=== PATIENT | male | born 1950 | race Caucasian/White ===

== ENCOUNTER 2019-06-04 11:45 | Inpatient (IN) | payer MEDICARE, OTHER, SELFPAY ==
[2019-06-04] VITALS (39 sets, daily range): BP systolic 116–178; BP diastolic 68–114; PULSE 71–100; RESP 10–25; TEMP 35.8–36.6; O2SAT 88–99; BMI 460.2
--- NOTE | 2019-06-04 11:51 | XACV_ITS ---
Ht: 180 cm Wt: 150 kg BSA: 2.81 m2 Gender: Male : 1950 Any Known Allergies: Hydrocodone Exam Priority: Routine Procedure(s): Procedure Description: Diagnostic procedure Procedure Description: PCI procedure Procedure Description: Left Heart Catheterization Procedure Description: Left ventriculography Procedure Description: Drug Eluting Coronary Stent Procedure Description: PTCA Procedure Description: Coronary Angiography Diagnostic Cath Status: Emergency Diagnostic Findings Patient arrived as a STEMI alert. He had been having typical chest discomfort with shortness of breath and diaphoresis for about 2 hours. Appropriate medications given in the emergency room. The patient was transferred directly to the cardiac catheterization laboratory. Procedure done from the right radial artery. A right 4 Enrico guide would not seat in the right coronary artery. A Jorge posterior right guide was used. The right coronary artery was occluded just past the origin. Left main coronary artery is normal. Circumflex is a relatively large vessel and gives off for obtuse marginal branches. There are no lesions in the circumflex. The LAD is likewise a moderate size vessel without significant disease. There are 2 diagonal branches. PCI Status: Emergency PCI LVEF Assessed: Yes PCI Indication: STEMI - Immediate PCI for STEMI Interventional Findings The lesion was crossed relatively easily and underwent balloon angioplasty followed by stenting without incident. Remainder of the right coronary arteries mildly diffusely diseased. There is moderate diffuse disease at the acute margin. A good angiographic result was obtained. Decision for PCI with Surgical Consult: No PCI for Multi-vessel Disease: No Conclusions STEMI with occlusion of the right coronary artery. Successful opening with angioplasty and drug-eluting stent. Normal LV function No disease in the left main, circumflex or LAD. Interventional RX Recommendation: PCI w/o planned CABG Diagnostic RX Recommendation: PCI w/o planned CABG Anticoagulation: Heparin Ventriculography Ejection Fraction: 55.0 % Pressures Phase:Rest AO : 88 mmHg / 42 mmHg ( 60 mmHg ) @ 6:11:00 AM 97 mmHg / 70 mmHg ( 83 mmHg ) @ 6:12:00 AM 109 mmHg / 83 mmHg ( 94 mmHg ) @ 6:14:00 AM 89 mmHg / 8 mmHg ( 33 mmHg ) @ 6:34:00 AM LV : 140 mmHg / 0 mmHg / @ 6:34:00 AM 113 mmHg / -34 mmHg / @ 6:34:00 AM Clinical Evaluation EBL: 5mL-10mL Procedural Details AP pads applied. Cardiovascular Instability: No. Pt recieved in ER 4000 units heparin and 600 mg plavix prior to arrival to builder's labourer. Results checked. Procedure Consent Obtained. Pre-Procedure Time Out. Identified patient by full name and date of as verbalized by the patient/guarantor. Does the consent match the physician's order: N/A Emergent. Accurate & Complete Informed Consent: N/A Emergent. Inpatient/Outpatient History & Physical on Chart: N/A Emergent. If H&P is completed, is and addenduem needed: N/A Emergent; If yes, is the addendum complete: N/A Emergent. Visualize and Verify Site with Patient/Guarantor: N/A. Relevant Radiology Images available: N/A. Pre-op teaching completed and patient verbalized understanding. The risks, benefits, and alternatives of sedation and/or procedure were discussed by physician. The patient agrees to continue. Procedure started. Correct patient, site and procedure confirmed by cath team. PERRLA. Strong, equal hand site monitor bilaterally. Lungs clear x 5 lobes. IV Site on Arrival: 18 gauge in the right anticubital. IV Site on Arrival: 20 gauge in the left hand. Pre Procedural Pulses: bilateral radial was 3+. Oxygen started at 2liters/min via nasal canula. bilateral groins was prepped with chloroprep then draped in the usual sterile fashion. right radial was prepped with chloroprep then draped in the usual sterile fashion. Physician arrived. Equipment: 6F - Radial. Baseline sample Acquired. HR: 86 BPM. IV Fluids: 0.9% NaCl at KVO. 500 mL infused prior to builder's labourer. [place] Clinical Fraility Score: 4: Vulnerable. Microwave Remote Sensing Scientist Indications: ACS <= 24 hours. Chest Pain Symptom Assessment: Typical Angina Symptoms. Physician scrubbed in. Immediate Pre-Procedure Time Out. Correct Patient: Yes; Correct Procedure: Yes; Correct Site: Yes; Correct Patient Position: Yes; Correct Supplies: Yes; Dried Flammable Prep: N/A; Blood Products Available: N/A;. Cardiac Cath Pack. ACIST Manifold Kit Model BT 2000. Heparinized Saline (2 units/mL), 1000 mL bag. Lidocaine 1% infiltrated to the right radial. Arterial access obtained. Inventory is CRD 6FR JR 4 GUIDE 100cm. 6 belizean JR 4 guide catheter was inserted over the wire. Guide catheter out. 6 belizean 3DRC guide catheter was inserted over the wire. Kendall guidewire was advanced through the guide catheter to lesion in the prox RCA. Inflation number : 1 A AB TREK 3.00X12 RX BALLOON was prepped and advanced across the Prox RCA , then inflated to 10 MICHELLE for 0:31 seconds. Patient's family updated. Balloon out. Inflation Number : 2 A ABIOLA Harden TRACY 3.0X22 CRISSY -Lot Number# [id number] (exp date 01/12/2021) was prepped and advanced across the Prox RCA. The stent was deployed at 12 MICHELLE for 0:47 seconds. Stent balloon and wire out. Guide catheter out. A 6 belizean TIG catheter in over wire. Multiple views taken of left coronary artery. Catheter removed over the exchange wire. A CRD 6F 145 degree Pigtail 110cm Diagnostic Catheter was advanced over the wire and used for Ventriculography. EDP Sample taken: LV 140/0,19; HR: 92 BPM; SpO2: 90%. LV gram performed in BARRY @ 10 mL/second for a total of 30 mL. EDP Sample taken: LV 113/-35,-10; HR: 90 BPM; SpO2: 92%. Pullback taken: LV Off; AO Off; Mean: , Peak to Peak: , SEP: ; HR: 80 BPM; SpO2: 91%. Catheter removed over the exchange wire. Physician scrubbed out. A TR Band was successful obtaining hemostatsis at the Right Radial artery insertion site. TR band placed. Hemostasis obtained. Post Procedure: Pulses reassessed and unchanged. PERRLA. Strong, equal hand site monitor bilaterally. No VTE prophylaxis required. Medication's Wasted: Lidocaine 1% = 18 mL. Medication's Wasted: Nitro = 49.8 mg. Medication's Wasted: Other = versed 3 mg. Total IV fluids: 100 mL. Complications: none. Estimated blood loss: 5mL-10mL. Post-op diagnosis: STEMI. PCI Indication: STEMI. Procedure completed. Patient transferred by wheelchair to CPRU. Vital chart was stopped. Site: Right Radial artery Sheath Size: 6 Fr Hemostasis Method: TR Band Hemostasis Success: Successful Procedure Medications Start: 12:00 PM Stop: 12:00 PM Medication: Versed Amount: 1 mg Route: I.V. Start: 12:01 PM Stop: 12:01 PM Medication: Fentanyl Amount: 50 mcg Route: I.V. Start: 12:06 PM Stop: 12:06 PM Medication: Versed Amount: 1 mg Route: I.V. Start: 12:07 PM Stop: 12:07 PM Medication: Verapamil Amount: 5 mg Route: I.A. Start: 12:07 PM Stop: 12:07 PM Medication: Nitrogylcerin Amount: 200 mcg Route: I.A. Start: 12:07 PM Stop: 12:07 PM Medication: Fentanyl Amount: 50 mcg Route: I.V. Start: 12:19 PM Stop: 12:19 PM Medication: Versed Amount: 1 mg Route: I.V. Start: 12:25 PM Stop: 12:25 PM Medication: Fentanyl Amount: 50 mcg Route: I.V. Start: 12:31 PM Stop: 12:31 PM Medication: Versed Amount: 1 mg Route: I.V. Start: 12:31 PM Stop: 12:31 PM Medication: Fentanyl Amount: 50 mcg Route: I.V. I, the attending physician, have reviewed and verified all procedure medications. Yes, all medications given per verbal order History/Risk Factors Hypertension: Yes Dyslipidemia: No Peripheral Arterial Disease (PAD): No Myocardial Infarction (IN): No Obesity: Yes Renal Disease: No Prior Interventions PCI: No CABG: No Valve Surgery: No Report Signatures Finalized by:Dr. Dimitri Chapa MD on 06/04/2019 4:21:08 PM
[2019-06-04] MEDS: clopidogrel 300 mg Tablet 600 MG PO (11:55)
[2019-06-04] MEDS: heparin 5,000 unit/mL INJ 1 mL 4000 UNIT IV (11:56)
--- NOTE | 2019-06-04 11:56 | ED_ITS ---
Entered by Logan Merida, acting as scribe for Tristan Rollins DO HPI - Chest Pain General: Chief Complaint: Chest Pain Stated Complaint: STEMI Time Seen by Provider: 06/04/19 11:56 History of Present Illness: HPI narrative: 68 yo male presents with stemi. Pt is going to cathlab from the ER. Patient brought in by EMS for chest pain. I was with another patient and Dr. Small my other partner in the emergency room had a stroke alert. When I came to see the patient Dr. Chapa had already been in the room and they were willing the patient to the Internal Control Consultant. He had been there for a total of 7 minutes at that point. EKG shows acute ST elevation with elevation in 2 3 and aVF. T wave inversion in 1 and aVL. MD complaint: chest pain Review of Systems Card: Reports: chest pain, shortness of breath on exertion and shortness of breath when lying down Physical Exam Const: COMMON NORMALS: average body habitus GENERAL APPEARANCE: cooperative, comfortable and well developed NUTRITIONAL APPEARANCE: obese ORIENTATION/CONSCIOUSNESS: Yes awake HENMT: COMMON NORMALS: normocephalic and head/scalp atraumatic HEAD & SCALP: normocephalic and atraumatic MOUTH: oral and palatal mucosa normal, lip normal and tongue normal THROAT: posterior oropharynx normal and tonsils normal Course ED course: Patient is a STEMI. Dr. Chapa had seen the patient before I was in there had already made arrangements to go to Internal Control Consultant. Patient was room for about 7 to 8 minutes before I came to the room. Did not do any further exam or hinder progress to the Internal Control Consultant did review the EKG. Vital Signs: Vital signs: Vital Signs Pulse Rate 86 06/04/19 11:54 Respiratory Rate 22 H 06/04/19 11:54 Blood Pressure 178/89 06/04/19 11:54 Pulse Oximetry 92 06/04/19 11:54 Discharge Plan Discharge Patient Disposition: Admitted As Inpatient Clinical Impression: ST elevation myocardial infarction (STEMI) Condition: Critical Coding Level of Care Code ED Gallery Or Museum Technician for Chg Fwd Exam Problem Focused The documentation recorded by the scribe, Logan Merida, accurately reflects the service I personally performed and the decisions made by Ayo koo Curtis L, DO Jun 04, 2019 12:02
--- NOTE | 2019-06-04 13:00 | SUR.PHASEI ---
Patient to CPRU via wheelchair for holding pending bed availability. Status post LHC with intervention from the right radial artery. TR band in place to the site- no hematoma noted at this time. Verbal post cath instuctions given to the patient/ family. No new concerns at this time.
--- NOTE | 2019-06-04 13:00 | SUR.PHASEI ---
POST OP FLUIDS NS AT 75 ML/HR WHILE HOLDING. IV PATIENT- NO ISSUES.
--- NOTE | 2019-06-04 13:07 | PM.HP ---
Providers/Chief Complaint Admitting Physician: Dimitri Chapa Primary Care Provider: Lilly Saab Chief Complaint: STEMI History of Present Illness Terence Aguirre is a 68 year old male without a prior history of heart disease who presented to the hospital emergency room by ambulance under a STEMI alert. 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 He had the sudden onset of chest discomfort radiating down both arms with arm discomfort, diaphoresis and shortness of breath. This was typical chest discomfort for angina or injury. His was actually here at the hospital visiting someone else. He called her and then called the ambulance. The prehospital personnel gave him 2 nitroglycerin and several aspirin. His EKG showed ST segment elevation in leads III and aVF which was confirmed on the EKG here. He was prepared immediately for a trip to the cardiac catheterization laboratory. Before that he was given 4000 units of heparin and 600 mg of Plavix. Initially his pain was 10 out of 10. Upon his arrival it was 7 out of 10. He is a reluctant historian because he is in fairly severe pain. His told me later that he had not been feeling well for the last 3 or 4 weeks but could not put his finger on it. She said that he was not having chest pain. Review of Systems General: Reports: 10 or more systems reviewed and unremarkable except in HPI and below Medications/Allergies Allergies Allergy/AdvReac Type Severity Reaction Status Date / Time codeine Allergy ADR-Nausea Verified 06/04/19 12:02 hydrocodone Allergy ADR-Nausea Verified 06/04/19 12:02 PFSH Acute PFSH: Statuses (acute, chronic, etc) shown below reflect problem list status as previously entered and may not be historically accurate Medical History Dyslipidemia (Acute) Elevated PSA (Acute) Essential hypertension (Acute) Gout (Acute) Obesity (Acute) Surgical History H/O removal of cyst (Acute) Hx of laparoscopic gastric banding (Acute) Social History Smoking and tobacco status: former smoker Quit status (tobacco): has quit using tobacco Second hand smoke exposure: No Alcohol intake: current Other details last alcohol use: Patient has an occasional alcoholic beverage socially Substance/Drug Use: never Adopted: No Caregiver/support person: Yes Lives independently: Yes Household members: spouse Housing: House Marital status: Highest education level completed: High School Graduate service: Yes Current occupational status: retired Current occupational exposures/hazards: No Pets and animals: Yes History of recent travel: No Vitals/I&O/Wt Last Vital Signs Pulse 86 06/04/19 11:54 Resp 22 H 06/04/19 11:54 BP 178/89 06/04/19 11:54 Pulse Ox 92 06/04/19 11:54 Weight last 48 hrs Weight 3300 lb Physical Exam Narrative: EXAM NARRATIVE: GENERAL: In general he is uncomfortable, in pain and diaphoretic squirming around the gurney. HEENT: Exam within normal limits. NECK: Supple without jugular vein distention. The carotid upstroke is normal without bruits. BACK: Exam normal. LUNGS: Clear. HEART: Regular rate and rhythm. ABDOMEN: Benign without organomegaly or tenderness. EXTREMITIES: No edema. NEUROLOGIC: Exam normal. SKIN: Unremarkable. Data Attestation for Other Data: I personally reviewed and interpreted the following: (EKG reveals sinus rhythm with ST elevation in leads III and aVF.) A&P Assessment and plan (1) Dyslipidemia: Status: Acute Code(s): E78.5 - Hyperlipidemia, unspecified (2) Essential hypertension: Status: Acute Code(s): I10 - Essential (primary) hypertension (3) Obesity: Status: Acute Qualifiers: Obesity type: due to excess calories Obesity classification: adult class 3 (BMI >= 40) Serious obesity comorbidity presence: unspecified whether serious comorbidity present Code(s): E66.9 - Obesity, unspecified (4) ST elevation myocardial infarction (STEMI): Status: Acute Qualifiers: Involved coronary artery: right coronary artery Qualified Code(s): I21.11 - ST elevation (STEMI) myocardial infarction involving right coronary artery Code(s): I21.3 - ST elevation (STEMI) myocardial infarction of unspecified site Additional A&P Information Patient will go straight to the cardiac catheterization laboratory. I expect the right coronary artery lesion. The EKG reveals ST elevation in the inferior leads. He will be in the hospital 2 days. Attestations Medical Necessity Statement*: I expect the patient's hospital stay to cross 2 midnights for the management of an acute inferior wall PA. Time Spent in Patient Care: Greater than 35 minutes (>than 50% of time spent in counselling and/or direct pt care on unit). Critical Care Time: Critical Care Time (min): 15 Coding Level of Care Code Acute Manager Provider Relations for Chg Fwd History Detailed Exam Detailed Medical Decision Making Moderate Complexity Diagnoses Dyslipidemia E78.5 Essential hypertension I10 Obesity E66.9 Obesity type: due to excess calories Obesity classification: adult class 3 (BMI >= 40) Serious obesity comorbidity presence: unspecified whether serious comorbidity present ST elevation myocardial infarction (STEMI) I21.11 Involved coronary artery: right coronary artery Time Spent (min) 45
--- NOTE | 2019-06-04 13:40 | ECG_ITS ---
Measurements Intervals [place] Rate: 76 P: [place]: 0 QRS: 15 QRSD: 105 T: 101 QT: 374 QTc: 423 ATRIAL FIBRILLATION NONSPECIFIC T-WAVE ABNORMALITY Compared to ECG 12/28/2017 09:05:07 T-wave abnormality now present Sinus rhythm no longer present Electronically Signed On 06-04-2019 20:12:40 SAT TUTOR by Estephania Fernandez M.D. [id number]
--- NOTE | 2019-06-04 13:41 | PC.NURSE ---
Patient clutching his chest with chest pain 12/28. Dr. Chapa notified. see note.
--- NOTE | 2019-06-04 13:41 | ECG_ITS ---
Measurements Intervals [place] Rate: 91 P: 42 HI: 142 QRS: 23 QRSD: 92 T: 116 QT: 349 QTc: [address] ELEVATION, CONSIDER INFERIOR INJURY [MARKED ST ELEVATION W/O NORMALLY INFL INFLECTED T WAVE IN II/aVF] ACUTE IN WARNING: DATA QUALITY MAY AFFECT INTERPRETATION Compared to ECG 12/28/2017 09:05:07 ST (T wave) deviation now present Myocardial infarct finding now present Electronically Signed On 06-04-2019 20:12:26 COMPUTER BUILDER by Estephania Fernandez M.D. [id number]
--- NOTE | 2019-06-04 13:41 | PC.NURSE ---
Patient with complaints of Chest Pain 12/28. States as a squeezing of his chest and he is clutching his chest. BP 123/86 HR 72 (AFIB) O2 sat of 97% on [address] Chapa made aware via telephone with new orders received for a stat EKG. Respiratory was called for EKG.
--- NOTE | 2019-06-04 13:44 | PC.NURSE ---
Respiratory at bedside for EKG.
--- NOTE | 2019-06-04 13:50 | PC.NURSE ---
DR. Chapa called with EKG results. Showing Afib with a rate of 76. Sixto Welch RN, AIRCRAFT SHIPPING CHECKER is hand delivering the Previous and stat EKGs to Dr. Chapa in [facility]. Will await orders.
--- NOTE | 2019-06-04 13:53 | PC.NURSE ---
Orders received for Fentanyl 50 mcg IVP x 1
[2019-06-04] MEDS: fentaNYL 50 mcg/mL INJ 2mL IVP (14:05)
--- NOTE | 2019-06-04 15:00 | PC.NURSE ---
Letting the air out of the TR band per protocol.
--- NOTE | 2019-06-04 15:02 | PC.NURSE ---
Patient stating that he just cannot get comfortable and feels like he need to belch or pass gas . He was assisted out of the bed to the recliner without difficultly. His states the the pain is now down to a 4 and it feels much better sitting up. He requested something to drink with carbination in it. This nurse will get him a sprite.
--- NOTE | 2019-06-04 15:20 | PC.NURSE ---
When going in the patients room to check on the TR band this nurse found it to be slightly bleeding. The 3 ml of air that was taken out at 1500 was placed back in and the bleeding stopped. No hematoma formation. Radial pulse palpable. Will start letting the air out around [address] Chapa made aware.
--- NOTE | 2019-06-04 15:54 | PC.NURSE ---
Respiratory here for EKG that was previously ordered. Patients remains up in the chair. He states that he is feeling better. He has been belching for the last 30 minutes and states that has been a relief. He is no long clutching his chest. His spouse states that he did a lot of heavy lifting before his chest pain started earlier and that his arms are very sore and weak.
--- NOTE | 2019-06-04 16:03 | PC.NURSE ---
Dr. Chapa at bedside. No new orders.
--- NOTE | 2019-06-04 16:11 | PM.MISC ---
Miscellaneous Note Note: Approximately 1 hour after the procedure was completed, I received a call from the nurse stating the patient was having severe chest pain again with mild diaphoresis. It was difficult to sort out whether or not this was the same type of pain which brought him to the hospital. It seemed slightly different. We repeated the EKG and his ST segments had gone back down to normal as opposed to what we saw when he came to the hospital. I gave him 50 mcg of fentanyl. We also gave him some 7-Up and Coca-Cola as he thought perhaps it was gas. He had several very large belches which made him feel better. His color returned, the chest pain became much less and he was less uncomfortable. The diaphoresis also resolved. We have watched him over the last 2 hours to be sure that things are moving in the right direction. He looks much better than he did upon his arrival to the emergency room. Soon we will transfer him to the first floor for the remainder of his hospital stay.
[2019-06-04] MEDS: sodium chloride 0.9% 1,000 ML 100 ML IV (18:35)
[2019-06-04] MEDS: ALPRAZolam 0.25 mg Tablet PO (18:35)
[2019-06-04] MEDS: metoprolol tartrate 50 mg Tablet PO (18:35)
[2019-06-04 18:59] LABS: Troponin(5th) Baseline 268 ng/mL (0-15)
--- NOTE | 2019-06-04 19:41 | ECG_ITS ---
Measurements Intervals [place] Rate: 87 P: [place]: 0 QRS: 15 QRSD: 101 T: 0 QT: 351 QTc: [address] & T-WAVE ABNORMALITY ABNORMAL RHYTHM ECG Compared to ECG 12/28/2017 09:05:07 T-wave abnormality now present Sinus rhythm no longer present Electronically Signed On 06-04-2019 20:13:45 CONDUIT REAMER OPERATOR by Estephania Fernandez M.D. [id number]
[2019-06-04] MEDS: atorvastatin 40 mg Tablet 80 MG PO (19:50)
[2019-06-04] MEDS: alum-mag-hydroxide-sime 30 mL UDC PO (19:51)
[2019-06-04] MEDS: temazepam 15 mg Capsule PO (19:52)
--- NOTE | 2019-06-04 21:30 | PC.NURSE ---
TR band removed at 2029. Right wrist post-cath site WNL. No bleeding or hematoma noted. Dressing placed to right wrist. Patient educated on post-cath care and verbalized understanding. VSS. Will continue to monitor.
[2019-06-05] VITALS (8 sets, daily range): BP systolic 123–150; BP diastolic 85–95; PULSE 70–83; RESP 12–29; TEMP 36.6–37; O2SAT 92–95
[2019-06-05 00:16] LABS: Troponin 5 6HR 407.6 ng/L (0-15); Troponin 5 6HR Delta 139.6 ng/L (0-12)
[2019-06-05] MEDS: sodium chloride 0.9% 1,000 ML 100 ML IV (02:41)
--- NOTE | 2019-06-05 02:52 | PC.NURSE ---
IV removed from right AC per patient request stating that it was bothering him. IV is still present in left hand.
[2019-06-05 05:53] LABS: Basophils % 0.1 %; Eosinophils % 0.3 %; Hematocrit 43.2 % (42.0-52.0); Lymphocytes # 2.3 10^3/uL (0.8-4.8); Lymphocytes % 16.8 %; Mean Corpuscular HGB Conc 32.4 g/dL (30.0-36.0); Mean Corpuscular Hemoglobin 30.8 pg (28.0-34.0); Mean Corpuscular Volume 95.2 fL (80-94); Mean Platelet Volume 10.1 fL (7.4-10.4); Monocytes # 1.4 10^3/uL (0.2-0.9); Monocytes % 10.4 %; Neutrophils # 9.8 10^3/uL (1.8-7.7); Neutrophils % 72.1 %; Nucleated Red Blood Cells % 0 %; Platelet Count 201 10^3/cmm (130-400); Red Blood Count 4.54 10^6/uL (4.1-5.3); Red Cell Distribution Width 13.5 % (12.1-15.1); White Blood Count 13.7 10^3/uL (4.0-10.0)
[2019-06-05 06:19] LABS: Blood Urea Nitrogen 15 mg/dL (8-23); Calcium 9.4 mg/Dl (8.8-10.2); Carbon Dioxide 26 mmol/L (22-29); Chloride 103 mmol/L (98-107); Glomerular Filtration Rate 74.5 mL/min (90-130); Glucose 159 mg/dL (74-106); Sodium 139 mmol/L (136-145)
--- NOTE | 2019-06-05 06:51 | PM.PN ---
Subjective Medications: Reviewed: Yes Medication Review Details: Patient underwent cardiac catheterization yesterday acutely for an inferior wall [place]. The right coronary artery was occluded and underwent stenting. About an hour after the procedure was completed, the patient began to complain of severe chest discomfort. An EKG revealed his ST segment had normalized and was still relatively normal. He did not appear to have occluded the stent clinically. He was given some antacids and some soda. He belched several times and ultimately felt better. His troponins are of course elevated. His left system is unremarkable and he has very minimal LV dysfunction. This morning he feels really well and has no complaints. Vitals/I&O/Wt Last Vital Signs Temp 97.8 F 06/05/19 02:49 Pulse 83 06/05/19 02:44 Resp 23 H 06/05/19 02:44 BP 130/91 06/05/19 02:44 Pulse Ox 93 06/05/19 02:44 06/04/19 06/04/19 06/05/19 14:59 22:59 06:59 Intake Total 1310 / 1310 Balance 1310 / 1310 Weight last 48 hrs Weight 3300 lb Physical Exam Narrative: EXAM NARRATIVE: GENERAL: In general he looks and feels well HEENT: Exam within normal limits. NECK: Supple without jugular vein distention. The carotid upstroke is normal without bruits. BACK: Exam normal. LUNGS: Clear. HEART: Regular rate and rhythm. ABDOMEN: Benign without organomegaly or tenderness. EXTREMITIES: No edema. The right radial artery entry site is flat, dry without bleeding, hematoma or other vessel anomaly. NEUROLOGIC: Exam normal. SKIN: Unremarkable. Data Labs: Other Labs: Subsequent EKGs have revealed the ST segments in leads III and aVF to have normalized. Troponins have been elevated. Other Data: Attestation for Other Data: I personally reviewed and interpreted the following: A&P Assessment and plan (1) Dyslipidemia: Status: Acute Code(s): E78.5 - Hyperlipidemia, unspecified (2) Essential hypertension: Status: Acute Code(s): I10 - Essential (primary) hypertension (3) Obesity: Status: Acute Qualifiers: Obesity type: due to excess calories Obesity classification: adult class 3 (BMI >= 40) Serious obesity comorbidity presence: unspecified whether serious comorbidity present Body mass index: BMI 45.0-49.9 Qualified Code(s): E66.01 - Morbid (severe) obesity due to excess calories; Z68.42 - Body mass index (BMI) 45.0-49.9, adult Code(s): E66.9 - Obesity, unspecified (4) ST elevation myocardial infarction (STEMI): Status: Acute Qualifiers: Involved coronary artery: right coronary artery Qualified Code(s): I21.11 - ST elevation (STEMI) myocardial infarction involving right coronary artery Code(s): I21.3 - ST elevation (STEMI) myocardial infarction of unspecified site Additional A&P Information He is much improved today. We will place his IV on a heparin lock. He will get up and around today. If everything goes well he will be discharged tomorrow morning. Attestations Medical Necessity Statement*: Needs continued hospitalization for management of an acute inferior wall [place] Coding Level of Care Code Acute Arch Support Maker for Roxg Fwd History Detailed Exam Detailed Medical Decision Making Moderate Complexity Diagnoses Dyslipidemia E78.5 Essential hypertension I10 Obesity E66.01; Z68.42 Obesity type: due to excess calories Obesity classification: adult class 3 (BMI >= 40) Serious obesity comorbidity presence: unspecified whether serious comorbidity present Body mass index: BMI 45.0-49.9 ST elevation myocardial infarction (STEMI) I21.11 Involved coronary artery: right coronary artery Time Spent (min) 30
[2019-06-05] MEDS: clopidogrel 75 mg Tablet PO (08:59)
[2019-06-05] MEDS: metoprolol tartrate 50 mg Tablet PO ×2 (08:59→17:57)
[2019-06-05] MEDS: aspirin 81 mg EC Tablet PO (08:59)
--- NOTE | 2019-06-05 12:25 | PM.PN ---
Vitals/I&O/Wt Last Vital Signs Temp 97.9 F 06/05/19 08:02 Pulse 80 06/05/19 08:02 Resp 17 06/05/19 08:02 BP 142/94 06/05/19 08:02 Pulse Ox 93 06/05/19 08:02 06/04/19 06/05/19 06/05/19 22:59 06:59 14:59 Intake Total 1310 / 1310 240 / 240 Balance 1310 / 1310 240 / 240 Weight last 48 hrs Weight 3300 lb Data : 06/05/19 04:49 06/05/19 04:49 Attestations Medical Necessity Statement*: Patient required 48 hours of hospital stay for management of an acute inferior wall [place] Coding Level of Care Code Acute Will Call Clerk for Peri García
--- NOTE | 2019-06-05 12:38 | PC.CHAP ---
Pastoral Care Encounter/Spiritual Assessment Type of Contact [] Declined electronic instrument trades worker visit [] Patient/Family/Request visit [] Outpatient visit [] Follow-up visit [] Physician referral [] Code/Alert [x] Routine visit [] Staff referral [] Actively dying [] Patient sleeping [] Family support [] [] Out of room [] Palliative care [] [] Receiving care in room [] Pre-surgical visit [] Trauma [] Long length of stay [] ICU visit [] Other: Relational/Emotional Strength [x] Patient feels connected with others/family/visitors/staff [] Distress [] Loneliness/isolation [] Abandonment Spirituality of Patient [x] Person of Nikki [] Attends Mandaeism of their Nikki [x] Believes in Prayer [] Reads Bible or Alevism materials [] There are Spiritual issues to be addressed [place]man Interventions [x] Prayer [x] Active listening [x] Non-anxious presence [x] Spiritual/emotional support [] Crisis/trauma care [] Spiritual counseling [] Bereavement support [] Provided bereavement packet [] Provided Bible/devotional materials [] Provided toy/stuffed animal, coloring book to patient or family member [x] Completed spiritual assessment [] Provided Communion [] Anointing/[place] [] Salvation [] Other: Impact on Illness or Injury [] Angry [] Fearful [] Anxious [] Often cries [] Exhaustion [] Unable to work [] Unable to attend nondenominational [] Unable to walk/stand [] Unable to read [] Unable to drive [] Unable to eat/drink [] Unable to sleep [] Unable to be with family [] Other: Summary Linda seen patient , patient was with and daughter and had test and is feeling better. Time spent with patient 10 minutes
[2019-06-05] MEDS: atorvastatin 40 mg Tablet 80 MG PO (20:45)
[2019-06-05] MEDS: temazepam 15 mg Capsule PO (20:48)
[2019-06-06 04:00] VITALS: BP 133/75; PULSE 74; RESP 21; TEMP 36.8; O2SAT 97
--- NOTE | 2019-06-06 07:06 | PM.DCS ---
Discharge Providers Date of Admission: 06/04/19 16:48 Date of Discharge: 06/06/19 Attending Provider at Admission: Dimitri Chapa Attending Provider at Discharge: Dimitri Chapa Primary Care Provider: Lilly Saab Diagnoses at Discharge Discharge Diagnosis (1) Dyslipidemia: Status: Acute (2) Essential hypertension: Status: Acute (3) Obesity: Status: Acute Qualifiers: Obesity type: due to excess calories Obesity classification: adult class 3 (BMI >= 40) Serious obesity comorbidity presence: unspecified whether serious comorbidity present Body mass index: BMI 45.0-49.9 Qualified Code(s): E66.01 - Morbid (severe) obesity due to excess calories; Z68.42 - Body mass index (BMI) 45.0-49.9, adult (4) ST elevation myocardial infarction (STEMI): Status: Acute Qualifiers: Involved coronary artery: right coronary artery Qualified Code(s): I21.11 - ST elevation (STEMI) myocardial infarction involving right coronary artery (5) CAD (coronary artery disease): Status: Acute Reason for Visit Reason for Visit: Reason For Visit: STEMI Hospital Course Hospital Course: Patient entered the emergency room under a STEMI alert. There was ST segment elevation in leads III and aVF. Patient had typical discomfort with pain in the chest and down both arms, diaphoresis and shortness of breath. He was taken immediately to the cardiac catheterization laboratory. Procedure was done from the right radial artery. The right coronary artery was occluded in the proximal portion. It underwent angioplasty and stenting. The remainder of the vessel contained mild to moderate diffuse plaquing. The left system was essentially normal. There was minimal hypokinesis of the inferior base with an ejection fraction of 55%. Patient complained of severe recurrent chest pain about an hour after the procedure. It turned out to be gas. He had some soda and burped several times which made the pain go away. His EKG during that time showed the ST segments to be at baseline. His troponin was elevated as expected. For the remainder of his hospital stay he had no complications. No arrhythmias, heart block or congestive heart failure. The right radial artery entry site was without complication. No bleeding or hematoma or other vascular abnormality. Physical Exam Narrative: EXAM NARRATIVE: GENERAL: Comfortable and feels good at the time of discharge HEENT: Exam within normal limits. NECK: Supple without jugular vein distention. The carotid upstroke is normal without bruits. BACK: Exam normal. LUNGS: Clear. HEART: Regular rate and rhythm. ABDOMEN: Benign without organomegaly or tenderness. EXTREMITIES: No edema. Right radial entry site flat, dry without bleeding or hematoma NEUROLOGIC: Exam normal. SKIN: Unremarkable. Discharge Data Data Completed and Pending: Completed Studies During Hospitalization Category Date Time Status EGYPTOLOGIST request for service Stat Exams 06/04/19 11:51 Completed Vitals: Last Vital Signs Temp 98.2 F 06/06/19 04:00 Pulse 74 06/06/19 04:00 Resp 21 H 06/06/19 04:00 BP 133/75 06/06/19 04:00 Pulse Ox 97 06/06/19 04:00 Discharge Plan Discharge Patient Disposition: Home, Self-Care Condition: Good Prescriptions: New aspirin 81 mg Tablet,Delayed Release (Dr/Ec) 81 mg PO DAILY Qty: 30 RF: 3 clopidogrel 75 mg Tablet 75 mg PO DAILY Qty: 30 RF: 4 metoprolol tartrate 50 mg Tablet 50 mg PO BID Qty: 60 RF: 3 nitroglycerin [Nitrostat] 0.4 mg Tablet, Sublingual 0.4 mg sublingual Q5M PRN (Reason: Chest Pain) Qty: 25 RF: 3 Continued finasteride 5 mg tablet 5 mg PO DAILY RF: 0 allopurinol 100 mg tablet 200 mg PO DAILY RF: 0 ezetimibe-simvastatin 10-40 mg tablet 1 tab PO DAILY RF: 0 colchicine 0.6 mg Capsule 1.2 mg PO DAILY RF: 0 olmesartan 20 mg tablet 20 mg PO DAILY RF: 0 Discharge Orders: Discharge Order (Routine); Ordered 06/06/19 Ordered By: Dimitri Cahpa Referrals: Dimitri Chapa MD [Physician] - 3 months Mary Allen FNP [Nurse Practitioner] - 7-10 days Discharge Diet: Cardiac and Low Cholesterol Discharge Activity: Limit activity as instructed Activity Restrictions/Additional Instructions: No lifting over 5 pounds for 2 days with the right arm. No heavy lifting or vigorous activity for 2 weeks. May walk as much as desired. May drive a vehicle. Discharge Attestations Time Spent in Discharge Care*: greater than 30 min Specific Discharge Activities: Specific discharge activities: educating patient and educating and/or supporting family/caregiver Quality Metrics Clinical Quality Measures During this hospital stay, did patient experience: AMI Clinical Trial Participant: No Contraindication to aspirin (AMI): Aspirin given Contraindication to statin: Statin prescribed Contraindication to PCI: PCI performed Contraindication to Fibrinolytics: Alternative treatment initiated Coding Level of Care Code Acute Associate Automation Engineer for Chg Fwd History Detailed Exam Detailed Medical Decision Making Moderate Complexity Diagnoses Dyslipidemia E78.5 Essential hypertension I10 Obesity E66.01; Z68.42 Obesity type: due to excess calories Obesity classification: adult class 3 (BMI >= 40) Serious obesity comorbidity presence: unspecified whether serious comorbidity present Body mass index: BMI 45.0-49.9 ST elevation myocardial infarction (STEMI) I21.11 Involved coronary artery: right coronary artery CAD (coronary artery disease) I25.10
[2019-06-06 08:00] VITALS: BP 129/75; PULSE 83; RESP 18; TEMP 36.9; O2SAT 93
[2019-06-06 08:25] VITALS: PULSE 81; RESP 21; TEMP 36.8; O2SAT 97
== END 2019-06-06 08:45 | disposition home or self-care (01) | DRG 247 ==
LOC: ER 12:01 → CCL 12:04 → CSU 16:48
PROVIDERS: Admitting Provider Internal Medicine Cardiovascular Disease; Emergency Provider Family Medicine; Family Provider Family Medicine; PCP Family Medicine; Visit Provider Internal Medicine Cardiovascular Disease
PROC: 4A023N7 Measurement of Cardiac Sampling and Pressure, Left Heart, Percutaneous Approach (ICD-10-PCS; principal; 2019-06-04 11:50)
PROC: 4A023N7 Measurement of Cardiac Sampling and Pressure, Left Heart, Percutaneous Approach (ICD-10-PCS; 2019-06-04 11:50)
DX: I21.11 ST elevation (STEMI) myocardial infarction involving right coronary artery (principal); Z68.42 Body mass index [BMI] 45.0-49.9, adult; I25.10 Atherosclerotic heart disease of native coronary artery without angina pectoris; E78.5 Hyperlipidemia, unspecified; I10 Essential (primary) hypertension; E66.01 Morbid (severe) obesity due to excess calories; M10.9 Gout, unspecified; Z88.5 Allergy status to narcotic agent; Z87.891 Personal history of nicotine dependence; Z79.02 Long term (current) use of antithrombotics/antiplatelets; Z79.899 Other long term (current) drug therapy
CPT/HCPCS: 12345; 36415; 80048; 84484; 85025; 93005; 93452; 96374; 99281; C1725; C1769; C1874; C1887; C1894; C9606; J1644; J2001; J2250; J3010; J3490; J7030; Q9967

== ENCOUNTER → 2019-06-11 16:16 | Outpatient (BNVA) | payer MEDICARE, OTHER, SELFPAY | PROVIDERS: Family Provider Family Medicine; PCP Family Medicine; Visit Provider Nurse Practitioner Family | DX: I25.10 Atherosclerotic heart disease of native coronary artery without angina pectoris (principal) | CPT/HCPCS: 80048 ==

== ENCOUNTER 2019-06-20 12:19 | Outpatient (CLI) | payer MEDICARE, OTHER, SELFPAY ==
[2019-06-20 12:53] LABS: Anion Gap 17.1 (5-19); Blood Urea Nitrogen 15 mg/dL (8-23); Calcium 9.8 mg/dL (8.5-10.5); Carbon Dioxide 24 mmol/L (22-29); Chloride 104 mmol/L (98-107); Glomerular Filtration Rate 50.4 mL/min (90-130); Glucose 118 mg/dL (74-106); Osmolality Calculated 287 mOsm/kg (285-295); Potassium 5.1 mmol/L (3.5-5.1); Sodium 140 mmol/L (136-145)
== END 2019-06-20 12:20 | disposition home or self-care (01) ==
LOC: LAB 12:24
PROVIDERS: Family Provider Family Medicine; PCP Family Medicine; Visit Provider Nurse Practitioner Family
DX: I25.10 Atherosclerotic heart disease of native coronary artery without angina pectoris (principal)
CPT/HCPCS: 36415; 80048

== ENCOUNTER 2019-07-01 12:16 | Outpatient (RCR) | payer MEDICARE, OTHER, SELFPAY | END 2019-07-19 23:59 | disposition home or self-care (01) | LOC: CR 12:16 | PROVIDERS: Family Provider Family Medicine; PCP Family Medicine; Referring Provider Internal Medicine Cardiovascular Disease; Visit Provider Internal Medicine Cardiovascular Disease | DX: I25.10 Atherosclerotic heart disease of native coronary artery without angina pectoris (principal); I21.3 ST elevation (STEMI) myocardial infarction of unspecified site; Z95.5 Presence of coronary angioplasty implant and graft | CPT/HCPCS: 93798 ==

== ENCOUNTER 2019-10-21 09:07 | Outpatient (CLI) | payer MEDICARE, OTHER, SELFPAY ==
--- NOTE | 2019-10-21 09:15 | USCV_ITS ---
Terence Aguirre Age: 69 Gender: M : 1950 Exam Date: 10/21/2019 09:52 Ordering Phys: Tiffanie Dukes NP Technologist: Louisa Bowen Exam Location: [facility] [place] Indication: SCREENING FOR AAA HISTORY: SCRENING FOR AAA Diameter (cm) AP x Transverse x Length Velocity (cm/s) Waveform Prox Aorta: 3.06 x 2.70 x 73.40 Mid Aorta: 2.10 x 2.42 x 54.80 Distal Aorta: 2.37 x 2.17 x 62.90 Right Iliac Prox: 1.33 x 1.40 x 68.80 Left Iliac Prox: 1.83 x 1.70 x 55.70 Stent Prox Landing x x Aneurysmal Sac Max x x Lt Lat Sac Dim Rt Lat Sac Dim Stent Dist Landing x x Right Iliac Stent x x Left Iliac Stent x x Right Renal Art Left Renal Art FINDINGS: Normal aortic dimensions. Mild diffuse plaques in the aorta. Ectatic proximal common iliac arteries bilaterally Normal Doppler flow velocities CONCLUSIONS 1. No evidence of any aortic aneurysm. 2. Ectatic proximal common iliac arteries bilaterally. Dr Chelsie Mares MD FACC (Electronically Signed) Final Date: 22 October 2019 18:36 S
== END 2019-10-21 09:08 | disposition home or self-care (01) ==
LOC: RAD 09:13
PROVIDERS: PCP Nurse Practitioner Family; Visit Provider Nurse Practitioner Family
DX: Z87.891 Personal history of nicotine dependence (principal)
CPT/HCPCS: 76706

== ENCOUNTER 2020-11-19 12:46 | Outpatient (CLI) | payer MEDICARE, OTHER, SELFPAY ==
--- NOTE | 2020-11-19 12:52 | CT_ITS ---
WS: [id number] LDCT LUNG CANCER SCREENING HISTORY: TOBACCO USE TECHNIQUE: Axial imaging performed from the apices to 1 cm below the costophrenic angles. Coronal and sagittal reformats are submitted with axial MIP series. All CT scans at [facility] use at least one of these dose optimization techniques: automated exposure control; mA and/or kV adjustment per patient size (includes targeted exams where dose is matched to clinical indication); or iterativ e reconstruction. DLP: 57.75 mGy.cm DIvol: 1.58 mGy COMPARISON: None available. Diagnostic quality: Satisfactory Lung Nodules: None. Lungs: Well aerated lungs. Mild dependent changes posteriorly. Heart: Normal size. Other findings: Moderate coronary artery atherosclerosis. Small hiatal hernia. CT/CT lung screening [id number] IMPRESSION: LUNG-RADS: 1-Negative FOLLOW UP: 12 Month: Continue annual screening with LDCT OTHER FINDINGS (S MODIFIER): None.
--- NOTE | 2020-11-19 12:53 | XR_ITS ---
WS: [id number] Cervical spine, AP view, both obliques, lateral views with flexion, extension and neutral position, A P odontoid, 11/19/2020 Clinical Data: CERVICAIGIA Comparison: None. Findings: No compression fractures are seen. The disc heights are normal. There are large spurs of th e anterior inferior aspects of the vertebral bodies C2-C6. There is no prevertebral soft tissue swell ing. The odontoid is unremarkable. The lung apices are normal. The soft tissues of the neck show ishan cifications which may be in both carotid bifurcations. On flexion and extension there is no limitatio n of motion or subluxation. XR/XR cervical spine min 6V [id number] Impression: 1. Large anterior spurs of the cervical vertebral bodies C2-C3 6. 2. Negative for limitation of motion or subluxation on flexion or extension.
== END 2020-11-19 12:47 | disposition home or self-care (01) ==
PROVIDERS: PCP Nurse Practitioner Family; Visit Provider Nurse Practitioner Family
DX: Z77.090 Contact with and (suspected) exposure to asbestos (principal); Z87.891 Personal history of nicotine dependence; M54.2 Cervicalgia; M46.02 Spinal enthesopathy, cervical region
CPT/HCPCS: 71271; 72052

== ENCOUNTER 2021-03-27 11:35 | Emergency (ER) | payer MEDICARE, OTHER, SELFPAY ==
[2021-03-27 11:50] VITALS: BP 165/78; PULSE 57; RESP 18; TEMP 36.6; O2SAT 94; BMI 44.4
--- NOTE | 2021-03-27 12:37 | XRR_ITS ---
PROCEDURE INFORMATION: Exam: XR Chest Exam date and time: 03/27/2021 12:37 PM Age: 70 years old Clinical indication: Other: Dizzy; Additional info: Dizziness TECHNIQUE: Imaging protocol: XR of the chest. Views: 1 view. COMPARISON: CT lung screening [id number] 11/19/2020 12:56 PM FINDINGS: Lungs: Unremarkable. No consolidation. Pleural spaces: Unremarkable. No pleural effusion. No pneumothorax. Heart/Mediastinum: Unremarkable. No cardiomegaly. Bones/joints: Unremarkable. XR/XR chest 1V portable [id number] IMPRESSION: No acute findings. Radiation Dose CTDIVOL = (mGy): DLP = (mGy-cm)
--- NOTE | 2021-03-27 12:37 | CTR_ITS ---
PROCEDURE INFORMATION: Exam: CT Head Without Contrast Exam date and time: 03/27/2021 12:37 PM Age: 70 years old Clinical indication: Patient HX: C/O 3-4 days of dizziness; Additional info: Dizziness/ataxia TECHNIQUE: Imaging protocol: Computed tomography of the head without contrast. Radiation optimization: All CT scans at this facility use at least one of these dose optimization techniques: automated exposure control; mA and/or kV adjustment per patient size (includes targeted exams where dose is matched to clinical indication); or iterative reconstruction. COMPARISON: CR XR cervical spine min 6V [id number] 11/19/2020 1:02 PM RADIATION DOSE METRICS: Total DLP (mGy-cm): 1001.6 FINDINGS: Brain: No intracranial hemorrhage, edema or other acute abnormalities are seen in the brain. There is generalized chronic atrophy with prominence of the ventricles and sulci. There is no mass effect or midline shift. Cerebral ventricles: See Brain finding. Paranasal sinuses: Visualized sinuses are unremarkable. No fluid levels. Mastoid air cells: Visualized mastoid air cells are well aerated. Bones/joints: Unremarkable. No acute fracture. Soft tissues: Unremarkable. CT/CT head wo con* [id number] IMPRESSION: Generalized chronic atrophy. No acute intracranial abnormality. Radiation Dose CTDIVOL = (mGy): DLP = 1001.6 (mGy-cm)
--- NOTE | 2021-03-27 12:39 | ECG_ITS ---
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 Measurements Intervals [place] Rate: 53 P: 56 DE: 143 QRS: 33 QRSD: 97 T: 32 QT: 388 QTc: 366 Interpretive Statements SINUS BRADYCARDIA Compared to ECG 06/04/2019 15:55:17 Atrial fibrillation no longer present T-wave abnormality no longer present Electronically Signed On 03-27-2021 21:54:50 TRAVEL ASSISTANT by Ender Adkins M.D. [id number]
[2021-03-27 13:21] VITALS: BP 152/86; PULSE 52; O2SAT 93
[2021-03-27] MEDS: sodium chloride 0.9% 1,000 ML 999 ML IV (13:23)
[2021-03-27 13:25] LABS: Basophils % 0.5 %; Eosinophils # 0.1 10^3/uL (0.0-0.8); Eosinophils % 1.7 %; Hematocrit 51.1 % (42.0-52.0); Hemoglobin 16.6 g/dL (11.7-16.6); Lymphocytes % 26.2 %; Mean Corpuscular HGB Conc 32.5 g/dL (30.0-36.0); Mean Corpuscular Hemoglobin 30.3 pg (28.0-34.0); Mean Corpuscular Volume 93.4 fl (80-94); Mean Platelet Volume 9.8 fL (7.4-10.4); Monocytes # 0.7 10^3/uL (0.2-0.9); Monocytes % 9.4 %; Neutrophils # 4.73 10^3/uL (1.8-7.7); Neutrophils % 61.9 %; Nucleated Red Blood Cells % 0 %; Platelet Count 208 10^3/cmm (130-400); Red Blood Count 5.47 10^6/uL (4.1-5.3); Red Cell Distribution Width 13.2 % (12.1-15.1); White Blood Count 7.6 10^3/uL (4.0-10.0)
--- NOTE | 2021-03-27 13:37 | W.ED.DIZZY ---
HPI - Dizziness General: Chief Complaint: Dizziness Stated Complaint: off balance Time Seen by Provider: 03/27/21 11:52 Source: patient and family Mode of arrival: ambulatory History of Present Illness: HPI Narrative: 70-year-old male presents to emergency department chief complaint of dizziness with a gait abnormality has been ongoing progressively worse for the last several days. Patient reported a prior history heart attack or stent prior history of stroke. He reports no chest pain dizziness or dizziness or palpitations or shortness of breath. He reports when getting up from a seated to a standing position he gets kind of dizzy in which he also has difficulty with walking. The patient reports couple days ago he did strike his head during a fall. Patient does report having a history of hearing loss which he is being currently worked up for. MD elicited complaint: dizziness, lightheadedness, difficulty walking and disequilibrium Onset (ago): hour(s) Timing: awoke with symptoms and episodic Severity: moderate Description: sense of movement, lightheadedness, off-balance and difficulty walking Context: change in body position History of similar symptoms: No Exacerbating factors: movement/ambulation, change in body position, exertion and standing Relieving factors: nothing Associated symptoms: Denies chest pain, chills, headache(s), malaise, nausea, palpitations or vomiting Review of Systems General: Reports: 10 or more systems reviewed and unremarkable except in HPI and below Const: Denies: fever(s), chills, fatigue or malaise Eyes: Denies: change in vision or blurry vision Card: Denies: chest pain or palpitations Resp: Denies: dyspnea or productive cough GI: Denies: abdominal pain, nausea or vomiting : Denies: flank pain Musc: Denies: extremity pain or extremity swelling Skin/Breast: Denies: rash or pruritus Neuro: Reports: lack of coordination, difficulty walking and frequent falls; Denies: headache(s) Psych: Denies: anxiety or depression Geremias/Lymph: Denies: easy bleeding All/Imm: Denies: urticaria, throat swelling or facial swelling PFSH ED PFSH: Medical History (Updated 03/27/21 @ 16:30 by Mateo Shen) CAD (coronary artery disease) Angioplasty and stent of proximal RCA. LVEF 55%. Dyslipidemia Elevated PSA Essential hypertension Gout Obesity Surgical History H/O removal of cyst Hx of laparoscopic gastric banding Family History Other CAD (coronary artery disease) Cancer Dementia Diabetes Heart disease Hyperlipidemia Hypertension Social History Smoking and tobacco status: former smoker Quit status (tobacco): has quit using tobacco Second hand smoke exposure: No Alcohol intake: current Alcohol intake frequency: holidays/special occasions only Alcohol type: beer Other details last alcohol use: Patient has an occasional alcoholic beverage socially Adopted: No Caregiver/support person: Yes Lives independently: Yes Household members: spouse Housing: House Marital status: Highest education level completed: High School Graduate service: Yes Current occupational status: retired Current occupational exposures/hazards: No Pets and animals: Yes History of recent travel: No Physical Exam Narrative: EXAM NARRATIVE: Patient appears nontoxic appears in no obvious acute distress currently Const: COMMON NORMALS: no acute distress, patient oriented x3 and healthy appearing HENMT: COMMON NORMALS: normocephalic and atraumatic HEAD & SCALP: normocephalic and atraumatic Eye: COMMON NORMALS: Equal, round and reactive pupils present and EOMs intact bilaterally PUPIL: Yes Equal, round and reactive pupils present Neck/C-Spine: COMMON NORMALS: full ROM, supple and no JVD GENERAL: Yes normal visual inspection Lymph: LYMPHATIC: no lymphadenopathy noted Chest: COMMONS NORMALS: normal inspection of the chest and normal palpation of entire chest wall Resp: COMMON NORMALS: normal respiratory effort, No retractions and clear to auscultation bilaterally EFFORT & INSPECTION: Yes able to speak in complete sentences and Yes symmetric chest movement AUSCULTATION: clear to auscultation bilaterally Cardio: COMMON NORMALS: no JVD, regular rate and regular rhythm RATE: regular rate RHYTHM: regular rhythm GI: COMMON NORMALS: Normal to inspection, nondistended, normoactive bowel sounds present, Soft to palpation and non-tender INSPECTION: Yes normal to inspection PALPATION: Yes Soft to palpation : COMMON NORMALS: Yes no CVA tenderness BLADDER/KIDNEY EXAM: Yes no CVA tenderness Back/Pelvis: COMMON NORMALS: no CVA tenderness Extremity: COMMON NORMALS: normal to inspection and full ROM Neuro: COMMON NORMALS: patient oriented x3, CN's II-XII intact bilaterally, moves all extremities and no focal motor deficits Psych: COMMON NORMALS: mental status grossly normal, Normal thought process present, cooperative and normal affect THOUGHT PROCESS: Normal thought process present Skin: COMMON NORMALS: no rashes or lesions noted GENERAL SKIN EXAM: no rashes or lesions noted Course Vital Signs: Vital signs: Vital Signs Temperature 97.8 F 03/27/21 11:50 Pulse Rate 55 L 03/27/21 14:57 Respiratory Rate 18 03/27/21 11:50 Blood Pressure 129/70 03/27/21 14:57 Pulse Oximetry 94 03/27/21 14:57 MDM - Dizziness MDM Narrative: Medical decision making narrative: Due to the patient's symptoms and condition lab work and imaging will be obtained we will continue to follow. Patient's lab work imaging came back reassuring patient did have a second car troponin came back unremarkable CT imaging did not reveal any obvious underlying neuro cranial issue. Patient did report improvement with a steroid and meclizine provided prior to second troponin being obtained. This time the patient be subsequent discharged home with plans for the follow-up with primary care in 3 to 5 days in which she was advised to return the interim if any of his symptoms persist or worse. Lab Data: Labs: Lab Results 03/27/21 03/27/21 03/27/21 13:08 13:15 13:15 WBC 7.6 10^3/uL 10^3/ uL (4.0-10.0) RBC 5.47 10^6/uL H 10 ^6/uL (4.1-5.3) Hgb 16.6 g/dL g/dL (11.7-16.6) Hct 51.1 % % (42.0-52.0) MCV 93.4 fl fl (80-94) MCH 30.3 pg pg (28.0-34.0) MCHC 32.5 g/dL g/dL (30.0-36.0) RDW 13.2 % % (12.1-15.1) Plt Count 208 10^3/cmm 10^3 /cmm (130-400) MPV 9.8 fL fL (7.4-10.4) Neut % (Auto) 61.9 % % Lymph % (Auto) 26.2 % % [place] % (Auto) 9.4 % % Eos % (Auto) 1.7 % % Baso % (Auto) 0.5 % % Neut # (Auto) 4.73 10^3/uL 10^3 /uL (1.8-7.7) Lymph # (Auto) 2.0 10^3/uL 10^3/ uL (0.8-4.8) [place] # (Auto) 0.7 10^3/uL 10^3/ uL (0.2-0.9) Eos # (Auto) 0.1 10^3/uL 10^3/ uL (0.0-0.8) Baso # (Auto) 0.0 10^3/uL 10^3/ uL (0.0-0.1) Nucleated RBC % (a uto) 0 % % Nucleated RBCs # 0.0 /100WBC /100W BC Sodium 139 mmol/L mmol/L (136-145) Potassium 4.7 mmol/L mmol/L (3.5-5.1) Chloride 104 mmol/L mmol/L (98-107) Carbon Dioxide 25 mmol/L mmol/L (22-29) Anion Gap 14.7 (5-19) BUN 14 mg/dL mg/dL (8-23) Creatinine 1.1 mg/dL mg/dL (0.7-1.2) GFR Calculation 66.4 mL/min L mL/ min (90-130) Glucose 100 mg/dL mg/dL (65-115) Calculated Osmolal ity 289 mOsm/kg mOsm/ kg (285-295) Calcium 9.1 mg/dL mg/dL (8.5-10.5) Total Bilirubin 0.3 mg/dL mg/dL (0.15-1.2) AST 22 U/L U/L (0-40) ALT 31 U/L U/L (0-41) Alkaline Phosphata se 78 IU/L IU/L (40-130) Troponin T Baselin e Troponin T 120 Min sharee Delta Troponin T C-Reactive Protein 0.3 mg/L mg/L (0.0-4.9) NT-Pro-B Natriuret Pep 88 pg/mL pg/mL (0-125) Total Protein 7.4 g/dL g/dL (6.6-8.7) Albumin 4.2 g/dL g/dL (3.5-5.2) Globulin 3.2 g/dL g/dL (1.3-4.6) TSH 1.15 uIU/mL uIU/m L (0.27-4.20) Urine Color Yellow (Yellow) Urine Appearance Clear (CLEAR) Urine pH 5 (5-7) Ur Specific Gravit y 1.010 (1.005-1.030) Urine Protein Neg (Negative) Urine Glucose (UA) Norm (Normal) Urine Ketones Negative (Negative) Urine Blood Neg (Negative) Urine Nitrate Negative (Negative) Urine Bilirubin Neg (Negative) Urine Urobilinogen Norm mg/dL mg/dL (Negative) Ur Leukocyte Slime ase Negative (Negative) 03/27/21 03/27/21 13:15 15:05 WBC RBC Hgb Hct MCV MCH MCHC RDW Plt Count MPV Neut % (Auto) Lymph % (Auto) [place] % (Auto) Eos % (Auto) Baso % (Auto) Neut # (Auto) Lymph # (Auto) [place] # (Auto) Eos # (Auto) Baso # (Auto) Nucleated RBC % (a uto) Nucleated RBCs # Sodium Potassium Chloride Carbon Dioxide Anion Gap BUN Creatinine GFR Calculation Glucose Calculated Osmolal ity Calcium Total Bilirubin AST ALT Alkaline Phosphata se Troponin T Baselin e 13 ng/L ng/L (0-15) Troponin T 120 Min sharee 12.18 ng/L ng/L (0-15) Delta Troponin T -0.82 ABS# L ABS# (0-10) C-Reactive Protein NT-Pro-B Natriuret Pep Total Protein Albumin Globulin TSH Urine Color Urine Appearance Urine pH Ur Specific Gravit y Urine Protein Urine Glucose (UA) Urine Ketones Urine Blood Urine Nitrate Urine Bilirubin Urine Urobilinogen Ur Leukocyte Slime ase EKG Data^: EKG 1: Attestation: I personally reviewed and interpreted this EKG as follows: EKG interpretation date: 03/27/21 EKG interpretation time: 13:07 Prior EKG tracings: not available for review Computer generated interpretation: Normal sinus rhythm rate of 53 sinus bradycardia no gross ST segment elevations or depressions appreciated. Discharge Plan Discharge Patient Disposition: Home Clinical Impression: Vertigo Condition: Stable Prescriptions: New prednisone 20 mg tablet 20 mg PO DAILY 7 Days Qty: 7 RF: 0 meclizine 25 mg tablet 25 mg PO TID PRN (Reason: vertigo) Qty: 20 RF: 0 No Action metformin 500 mg tablet extended release 24 hr 1,000 mg PO BID RF: 0 metoprolol tartrate 50 mg tablet 50 mg PO BID RF: 0 allopurinol 100 mg tablet 100 mg PO DAILY RF: 0 clopidogrel 75 mg tablet 75 mg PO DAILY Qty: 90 RF: 3 ezetimibe-simvastatin 10-40 mg tablet 1 tab PO DAILY Qty: 90 RF: 3 colchicine 0.6 mg capsule 0.6 mg PO BID PRN (Reason: for flare) Qty: 90 RF: 3 finasteride 5 mg tablet 5 mg PO DAILY Qty: 90 RF: 3 olmesartan 20 mg tablet 20 mg PO DAILY Qty: 90 RF: 3 aspirin 81 mg Tablet,Delayed Release (Dr/Ec) 81 mg PO DAILY Qty: 30 RF: 3 Nitrostat 0.4 mg Tablet, Sublingual 0.4 mg sublingual Q5M PRN (Reason: Chest Pain) Qty: 25 RF: 3 Discharge Orders: Discharge ED (Routine); Ordered 03/27/21 Ordered By: Mateo Shen Referrals: Tiffanie Dukes NP [Primary Care Provider] - Discharge Diet: Usual diet Discharge Activity: Increase activity as tolerated Patient Instructions: Benign Positional Vertigo, Benign Paroxysmal Positional Vertigo (ED), Near Syncope (ED), Dizziness (ED), Opioid Safety Activity Restrictions/Additional Instructions: Please follow-up with your primary care doctor in 3 to 5 days, take medication as prescribed, and please return in the interim if any of your symptoms persist or worse. Coding Level of Care Code ED Forensic Medical Examiner for Peri García Exam Comprehensive
[2021-03-27 13:38] LABS: Add Urine Microscopic? NO; Charge for UA Resulting for Rev
[2021-03-27 13:42] LABS: Troponin(5th) Baseline 13 ng/L (0-15)
[2021-03-27 13:48] LABS: Alanine Aminotransferase 31 U/L (0-41); Albumin Level 4.2 g/dL (3.5-5.2); Alkaline Phosphatase 78 IU/L (40-130); Anion Gap 14.7 (5-19); Aspartate Amino Transferase 22 U/L (0-40); Blood Urea Nitrogen 14 mg/dL (8-23); C Reactive Protein 0.3 mg/L (0.0-4.9); Calcium 9.1 mg/dL (8.5-10.5); Carbon Dioxide 25 mmol/L (22-29); Chloride 104 mmol/L (98-107); Globulin 3.2 g/dL (1.3-4.6); Glomerular Filtration Rate 66.4 mL/min (90-130); Glucose 100 mg/dL (65-115); NT Pro B Type Natriuretic Pept 88 pg/mL (0-125); Osmolality Calculated 289 mOsm/kg (285-295); Potassium 4.7 mmol/L (3.5-5.1); Sodium 139 mmol/L (136-145); Thyroid Stimulating Hormone 1.15 uIU/mL (0.27-4.20); Total Bilirubin 0.3 mg/dL (0.15-1.2); Total Protein 7.4 g/dL (6.6-8.7)
[2021-03-27] MEDS: meclizine 25 mg tablet 50 MG PO (14:05)
[2021-03-27 14:17] LABS: Bilirubin Urine Neg (Negative); Blood Urine Neg (Negative); Glucose Urine UA Norm (Normal); Ketones Urine Negative (Negative); Leukocyte Esterase Urine Negative (Negative); Nitrate Urine Negative (Negative); Protein Urine Neg (Negative); Urine Appearance Clear (CLEAR); Urine Color Yellow (Yellow); Urobilinogen Urine Norm (Negative); pH Urine 5 (5-7)
--- NOTE | 2021-03-27 14:39 | ECG_ITS ---
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 Measurements Intervals [place] Rate: 54 P: 30 FL: 134 QRS: 22 QRSD: 92 T: 23 QT: 390 QTc: 372 Interpretive Statements SINUS BRADYCARDIA WITH SINUS ARRHYTHMIA LOW QRS VOLTAGE IN PRECORDIAL LEADS [QRS DEFLECTION < 1.0 mV IN CHEST LEADS] Compared to ECG 03/27/2021 12:59:28 Low QRS voltage now present Electronically Signed On 03-27-2021 21:58:43 ENVIRONMENTAL COORDINATOR by Ender Adkins M.D. [email or web address]
[2021-03-27 14:57] VITALS: BP 129/70; PULSE 55; O2SAT 94
[2021-03-27 15:41] LABS: Troponin 5 2HR 12.18 ng/L (0-15)
[2021-03-27 15:42] LABS: Troponin 5 2HR Delta -0.82 ABS# (0-10)
== END 2021-03-27 17:08 | disposition home or self-care (01) ==
PROVIDERS: Emergency Provider Emergency Medicine; PCP Nurse Practitioner Family
DX: R42 Dizziness and giddiness (principal); Z79.84 Long term (current) use of oral hypoglycemic drugs; Z79.02 Long term (current) use of antithrombotics/antiplatelets; Z79.82 Long term (current) use of aspirin; I25.10 Atherosclerotic heart disease of native coronary artery without angina pectoris; E78.5 Hyperlipidemia, unspecified; I10 Essential (primary) hypertension; Z87.891 Personal history of nicotine dependence
CPT/HCPCS: 70450; 71045; 80053; 81003; 83880; 84443; 84484; 85025; 86140; 93005; 96360; 99284; J7030; J8597

== ENCOUNTER 2021-10-26 13:30 | Outpatient (CLI) | payer MEDICARE, OTHER, SELFPAY ==
--- NOTE | 2021-10-26 14:21 | PFTS_ITS ---
Date of Study:10/26/21 Date of Dictation: MECHANICS: Forced vital capacity (FVC) is normal. Forced expiratory volume in one second (FEV1) is normal. FEV1/FVC is normal. FLOW VOLUME LOOP: Mild scooping likely age-related. LUNG VOLUMES: Total lung capacity (TLC) is reduced. Residual volume (RV) is reduced. DIFFUSING CAPACITY FOR CARBON MONOXIDE: Mildly reduced. INTERPRETATION: The prebronchodilator spirometry is normal. No postbronchodilator spirometry was performed. Lung volumes are consistent with moderate restriction. Gas exchange (DLCO) is mildly reduced. MTDD
== END 2021-10-26 13:31 | disposition home or self-care (01) ==
LOC: RT 13:32
PROVIDERS: PCP Nurse Practitioner Family; Visit Provider Nurse Practitioner Family
DX: R05.3 Chronic cough (principal)
CPT/HCPCS: 94010; 94726; 94729

== ENCOUNTER → 2021-12-15 12:45 | Outpatient (BNVA) | payer MEDICARE, OTHER, SELFPAY | PROVIDERS: PCP Nurse Practitioner Family; Visit Provider Internal Medicine | DX: I25.10 Atherosclerotic heart disease of native coronary artery without angina pectoris (principal); E78.5 Hyperlipidemia, unspecified; I10 Essential (primary) hypertension; E66.9 Obesity, unspecified; Z68.42 Body mass index [BMI] 45.0-49.9, adult; R07.9 Chest pain, unspecified; Z87.891 Personal history of nicotine dependence | CPT/HCPCS: 99214 ==

== ENCOUNTER 2022-02-03 13:56 | Outpatient (CLI) | payer MEDICARE, OTHER, SELFPAY ==
--- NOTE | 2022-02-03 14:30 | CT_ITS ---
WS: [id number] LDCT LUNG CANCER SCREENING TECHNIQUE: Noncontrast CT of the chest with coronal and sagittal reformatted images. CLINICAL INFORMATION: TOBACCO USE COMPARISON: CT November 19, 2020 DLP: 107.91 mGy.cm DIvol: Mean CTDIvol: 2.30 (mGy) All CT scans at [facility] use at least one of these dose optimization techniques: automat ed exposure control; mA and/or kV adjustment per patient size (includes targeted exams where dose is matched to clinical indication); or iterative reconstruction. FINDINGS: Moderate chronic emphysematous changes. Hazy atelectasis and slight groundglass infiltrates in the pipo ng bases. Recommend correlation for infectious or inflammatory symptoms. No focal pneumonia or pleura l fluid. Normal caliber thoracic aorta. No mediastinal or hilar lymphadenopathy. No axillary lymphadenopathy. Small esophageal hiatal hernia. Low-attenuation liver lesion likely hepatic cyst measuring 2.2 CM. Splenic granulomas. Adrenal glands are normal. Hypertrophic changes thoracic spine. CT/CT lung screening [id number] IMPRESSION: LUNG-RADS: 2-Benign Appearance or Behavior FOLLOW UP: 12 Month: Continue annual screening with LDCT
== END 2022-02-03 13:57 | disposition home or self-care (01) ==
PROVIDERS: PCP Nurse Practitioner Family; Visit Provider Nurse Practitioner Family
DX: Z12.2 Encounter for screening for malignant neoplasm of respiratory organs (principal); Z87.891 Personal history of nicotine dependence
CPT/HCPCS: 71271

== ENCOUNTER → 2022-07-13 12:43 | Outpatient (BNVA) | payer MEDICARE, OTHER, SELFPAY | PROVIDERS: PCP Nurse Practitioner Family; Visit Provider Internal Medicine | DX: I25.119 Atherosclerotic heart disease of native coronary artery with unspecified angina pectoris (principal); E78.5 Hyperlipidemia, unspecified; I10 Essential (primary) hypertension; E66.01 Morbid (severe) obesity due to excess calories; Z68.42 Body mass index [BMI] 45.0-49.9, adult; R07.9 Chest pain, unspecified; Z87.891 Personal history of nicotine dependence; Z79.82 Long term (current) use of aspirin | CPT/HCPCS: 99214 ==

== ENCOUNTER 2023-03-02 10:13 | Outpatient (CLI) | payer MEDICARE, OTHER, SELFPAY ==
--- NOTE | 2023-03-02 10:18 | CT_ITS ---
WS: [id number] LDCT LUNG CANCER SCREENING HISTORY: HX OF TOBACCO USE TECHNIQUE: Axial imaging performed from the apices to 1 cm below the costophrenic angles. Coronal and sagittal reformats are submitted with axial MIP series. All CT scans at [facility] use at least one of these dose optimization techniques: automated exposure control; mA and/or kV adjustment per patient size (includes targeted exams where dose is matched to clinical indication); or iterativ e reconstruction. DLP: 258.69 mGy.cm DIvol: Mean CTDIvol: 6.90 (mGy) COMPARISON: 02/03/2022 Diagnostic quality: Breathing motion artifact. Lungs: Hazy consolidations and nodularity. There is groundglass opacification with subsolid consolida tions and nodules involving the RIGHT upper and RIGHT lower lobes and to a lesser extent the RIGHT mi ddle lobe. Lung volumes are decreased due to poor inspiratory effort. There is mild hazy attenuation also in the LEFT lower lobe. No endobronchial lesions. Heart: Moderate cardiomegaly. Moderate calcification in the coronary arteries.. Other findings: Mild atherosclerosis aorta. Mildly enlarged RIGHT paratracheal lymph node at 1.8 cm. Hilar regions are difficult to evaluate for adenopathy without IV contrast. 1.6 cm low-attenuation mass in the RIGHT lobe of the liver. Not changed significantly since 02/03/2022 . Small hiatal hernia. Splenic granulomata. Calcifications in the RIGHT adrenal gland probably from p rior hemorrhage or granulomatous disease. IMPRESSION: CT/CT lung screening [id number] LUNG-RADS: 4A-Probably Suspicious FOLLOW UP: 3 Month LDCT OTHER FINDINGS (S MODIFIER): None. 3-month chest CT follow-up is recommended with IV contrast. Recommend treatment for pneumonitis and pneumonia prior to follow-up exam. The nodules and opacifi cation described above in the RIGHT lung may be due to pneumonia/aspiration pne umonia. Neoplasm is not excluded. Also consider hypersensitivity pneumonia. Rec ommend study be performed with IV contrast to better evaluate the hilar regions .
== END 2023-03-02 10:14 | disposition home or self-care (01) ==
LOC: RAD 10:13
PROVIDERS: PCP Nurse Practitioner Family; Visit Provider Nurse Practitioner Family
DX: Z12.2 Encounter for screening for malignant neoplasm of respiratory organs (principal); Z87.891 Personal history of nicotine dependence
CPT/HCPCS: 71271

== ENCOUNTER → 2023-03-05 15:09 | Outpatient (BNVA) | payer MEDICARE, OTHER, SELFPAY | PROVIDERS: PCP Nurse Practitioner Family; Visit Provider Internal Medicine Cardiovascular Disease | DX: R07.9 Chest pain, unspecified (principal); R00.1 Bradycardia, unspecified; I25.118 Atherosclerotic heart disease of native coronary artery with other forms of angina pectoris; E78.5 Hyperlipidemia, unspecified; I10 Essential (primary) hypertension; Z68.42 Body mass index [BMI] 45.0-49.9, adult; E11.9 Type 2 diabetes mellitus without complications; E66.01 Morbid (severe) obesity due to excess calories | CPT/HCPCS: 93005; 99215 ==

== ENCOUNTER → 2023-07-11 14:25 | Outpatient (BNVA) | payer MEDICARE, SELFPAY | PROVIDERS: PCP Nurse Practitioner Family; Visit Provider Family Medicine | DX: E11.9 Type 2 diabetes mellitus without complications (principal) | CPT/HCPCS: 80053; 83036 ==

== ENCOUNTER 2023-09-06 16:51 | Outpatient (CLI) | payer MEDICARE, SELFPAY ==
--- NOTE | 2023-09-06 16:52 | CT_ITS ---
WS: [id number] CT chest w con* [id number] HISTORY: Nodule of the right lung TECHNIQUE: Axial imaging performed through the thorax. Coronal and sagittal reformats are submitted. All CT scans at [facility] use at least one of these dose optimization techniques: automated exposure control; mA and/or kV adjustment per patient size (includes targeted exams where dose is mat ched to clinical indication); or iterative reconstruction. CONTRAST: Omnipaque 350; 100 mL IV. DLP: 746.01 mGy.cm COMPARISON: 03/02/2023 Lungs and central airway: Hyperinflated lungs. Significant improvement in the appearance of the lungs since the prior study of 03/02/2023. The reticular nodular opacifications and groundglass opacificat ions have markedly improved. There are a few peripheral areas of interstitial thickening remaining in a few areas of groundglass attenuation which are probably related to patient's interstitial lung dis ease. No mass or pneumonia. Pleura: Normal. No pleural effusion. Heart and pericardium: Mild RIGHT heart enlargement. There is flattening of the interventricular sept um suggesting RIGHT heart strain. Mediastinum and kristi: Mediastinum better visualized on today's examination. Small benign-appearing ly mph nodes. Vessels: Minimal atherosclerosis aorta. Normal size aorta. Pulmonary arteries equal size to the aorta . Coronary artery calcifications. Chest wall and lower neck: No soft tissue masses. Upper abdomen: Hepatic cyst anterior liver measures 1.6 cm. Splenic granulomata. No adrenal mass. Coa rse calcifications are noted in the RIGHT adrenal gland which are stable. The visualized pancreas is negative. Osseous structures: Bridging osteophytes along the RIGHT lateral mid thoracic spine. IMPRESSION: 1. Marked improvement in overall aeration throughout both lungs since 03/02/2023. Resolved areas of pneumonitis. Persistent peripheral interstitial thickening is most likely due to patient's chronic piop ng disease. 2. No mediastinal or hilar adenopathy. 3. Mild RIGHT heart strain. Slight flattening of the interventricular septum. 4. Coronary artery calcifications. 5. Hepatic cyst.
[2023-09-06] MEDS: iohexol 350 mg/mL 500 mL Btl (per mL) IV (17:11)
== END 2023-09-06 16:52 | disposition home or self-care (01) ==
LOC: RAD 16:51
PROVIDERS: PCP Family Medicine; Visit Provider Nurse Practitioner Family
DX: R91.1 Solitary pulmonary nodule (principal); R59.0 Localized enlarged lymph nodes; R93.89 Abnormal findings on diagnostic imaging of other specified body structures; I25.10 Atherosclerotic heart disease of native coronary artery without angina pectoris; K76.89 Other specified diseases of liver
CPT/HCPCS: 71260; Q9967

== ENCOUNTER → 2023-09-27 11:11 | Outpatient (BNVA) | payer MEDICARE, SELFPAY | PROVIDERS: PCP Family Medicine; Visit Provider Internal Medicine Cardiovascular Disease | DX: R06.02 Shortness of breath (principal) | CPT/HCPCS: 36415; 80048; 83880; 99215 ==

== ENCOUNTER 2023-10-09 13:28 | Outpatient (CLI) | payer MEDICARE, SELFPAY ==
--- NOTE | 2023-10-09 13:45 | USCV_ITS ---
Terence Aguirre Age: 73 Gender: M : 1950 Exam Date: 10/09/2023 13:36 Ordering Phys: Chelsie Mares MD ([email or web address]) Technologist: Louisa Bowen [place] [facility] [place]: Rt side of heart enlarged BP: / HR: 54 Rhythm: Sinus Technical Quality: Adequate MEASUREMENTS (Male / Female) Normal Values 2D ECHO LV Diastolic Diameter PLAX 5.6 cm 4.2 - 5.9 / 3.9 - 5.3 cm IVS Diastolic Thickness 1.2 cm 0.6 - 1.0 / 0.6 - 0.9 cm IVS Systolic Thickness 1.6 cm LVPW Diastolic Thickness 1.3 cm 0.6 - 1.0 / 0.6 - 0.9 cm LVPW Systolic Thickness 1.7 cm LVOT Diameter 2.0 cm LV Ejection Fraction 2D Teich 53.8 % LV Ejection Fraction MOD 2C 62.0 % LV Ejection Fraction 2C AL 61.9 % LA Diameter 2.0 cm RA Systolic Volume 4C AL 52.7 ml RA Systolic Volume 4C MOD 46.9 ml LA Sys Volume AL 46.9 cm cubed LA Sys Volume Index AL 17.1 cm cubed/m squared Aorta at Sinotubular Diameter 2.4 cm IVC Diameter 1.8 cm M-MODE LA Ao Ratio MM 1.3 AV Cusp Separation MM 2.1 cm DOPPLER AV Peak Velocity 136.0 cm/s LVOT Peak Velocity 118.0 cm/s AV Area Cont Eq vti 2.9 cm squared AV Area Cont Eq pk 2.8 cm squared MV Area PHT 3.4 cm squared Mitral E to A Ratio 1.9 TV Peak Velocity 127.5 cm/s TR Peak Velocity 121.0 cm/s TR Peak Gradient 5.9 mmHg TR Mean Velocity 102.0 cm/s TR Mean Gradient 4.4 mmHg TR Velocity Time Integral 37.6 cm TV Peak E Velocity 43.0 cm/s Right Atrial Pressure 3.0 mmHg Pulmonary Artery Systolic Pressu 8.9 mmHg PV Peak Velocity 103.0 cm/s RV Ejection Time 0.4 s FINDINGS Left Ventricle Normal left ventricular size and systolic function, EF 62%. No gross wall motion abnormalities noted Right Ventricle Possibly normal RV size ejection fraction. Right Atrium The right atrium is normal in size. Left Atrium The left atrium is normal in size. Mitral Valve Thickened mitral valve. Mild mitral annular calcification. Aortic Valve Thickened aortic valve. Tricuspid Valve No gross abnormalities noted Pulmonic Valve Pulmonic valve not well visualized. Pericardium An area of echolucency in the last Circumscribed area of echolucency in the anterolateral aspect. Echodensities are noted in the lumen Aorta Normal ascending aorta dimension. IVC Normal inferior vena cava. CONCLUSIONS Normal left ventricular size and systolic function, EF 62%. No gross wall motion abnormalities noted. Thickened mitral valve. Mild mitral annular calcification. Right ventricular patient with normal size ejection fraction. An area of echolucency on the anterolateral aspect, may suggest a pericardial cyst. Other lung pathologies cannot be excluded There are no intracardiac masses. No similar previous studies are available for comparison Dr Chelsie Mares MD [facility] (Electronically Signed) Final Date: 12 Oct 2023 09:52 S
== END 2023-10-09 13:29 | disposition home or self-care (01) ==
LOC: RAD 13:30
PROVIDERS: PCP Family Medicine; Visit Provider Internal Medicine Cardiovascular Disease
DX: R06.09 Other forms of dyspnea (principal); I34.89 Other nonrheumatic mitral valve disorders; I34.81 Nonrheumatic mitral (valve) annulus calcification
CPT/HCPCS: 93306

== ENCOUNTER → 2023-10-10 13:40 | Outpatient (BNVA) | payer MEDICARE, SELFPAY | PROVIDERS: PCP Family Medicine; Visit Provider Podiatrist Foot & Ankle Surgery | DX: L97.522 Non-pressure chronic ulcer of other part of left foot with fat layer exposed (principal); E11.621 Type 2 diabetes mellitus with foot ulcer; E11.42 Type 2 diabetes mellitus with diabetic polyneuropathy; M20.42 Other hammer toe(s) (acquired), left foot; Z79.84 Long term (current) use of oral hypoglycemic drugs | CPT/HCPCS: 36415; 73630; 85025; 85651; 86140; 99214 ==

== ENCOUNTER → 2023-10-24 12:43 | Outpatient (BNVA) | payer MEDICARE, SELFPAY | PROVIDERS: PCP Family Medicine; Visit Provider Podiatrist Foot & Ankle Surgery | DX: L97.522 Non-pressure chronic ulcer of other part of left foot with fat layer exposed (principal); E11.42 Type 2 diabetes mellitus with diabetic polyneuropathy; M20.42 Other hammer toe(s) (acquired), left foot; E11.621 Type 2 diabetes mellitus with foot ulcer; Z79.84 Long term (current) use of oral hypoglycemic drugs | CPT/HCPCS: 99213 ==

== ENCOUNTER → 2023-12-03 09:59 | Outpatient (BNVA) | payer MEDICARE, SELFPAY | PROVIDERS: PCP Family Medicine; Visit Provider Family Medicine | DX: E11.9 Type 2 diabetes mellitus without complications (principal) | CPT/HCPCS: 83036 ==

== ENCOUNTER 2024-02-12 12:21 | Outpatient (CLI) | payer MEDICARE, SELFPAY ==
--- NOTE | 2024-02-12 12:26 | XRR_ITS ---
PROCEDURE INFORMATION: Exam: XR Right Ankle Exam date and time: 02/12/2024 12:33 PM Age: 73 years old Clinical indication: Right; Patient HX: RT posterior ankle pain x 5 days, injury not specified; Additional info: Injury right ankle TECHNIQUE: Imaging protocol: Radiologic exam of the right ankle. Views: 3 or more views. COMPARISON: No relevant prior studies available. FINDINGS: Bones/joints: No fracture or other acute abnormality. Ankle mortise is normal. There are small calcaneal enthesophytes. Soft tissues: Normal. XR/XR ankle RT min 3V* [id number] IMPRESSION: Nonacute findings.
== END 2024-02-12 12:22 | disposition home or self-care (01) ==
LOC: RAD 12:23
PROVIDERS: PCP Family Medicine; Visit Provider Nurse Practitioner Family
DX: S99.911A Unspecified injury of right ankle, initial encounter (principal); M77.51 Other enthesopathy of right foot and ankle; X58.XXXA Exposure to other specified factors, initial encounter
CPT/HCPCS: 73610

== ENCOUNTER → 2024-04-18 11:43 | Outpatient (BNVA) | payer MEDICARE, SELFPAY | PROVIDERS: PCP Family Medicine; Visit Provider Family Medicine | DX: E11.9 Type 2 diabetes mellitus without complications (principal) | CPT/HCPCS: 80048; 83036 ==

== ENCOUNTER → 2024-07-03 15:11 | Outpatient (BNVA) | payer MEDICARE, SELFPAY | PROVIDERS: PCP Family Medicine; Visit Provider Internal Medicine Cardiovascular Disease | DX: R06.02 Shortness of breath (principal); I25.118 Atherosclerotic heart disease of native coronary artery with other forms of angina pectoris; E78.5 Hyperlipidemia, unspecified; I10 Essential (primary) hypertension; Z87.891 Personal history of nicotine dependence | CPT/HCPCS: 99214 ==

== ENCOUNTER → 2024-07-30 15:29 | Outpatient (BNVA) | payer MEDICARE, SELFPAY | PROVIDERS: PCP Family Medicine; Visit Provider Family Medicine | DX: E11.9 Type 2 diabetes mellitus without complications (principal); I10 Essential (primary) hypertension; I25.10 Atherosclerotic heart disease of native coronary artery without angina pectoris; R05.3 Chronic cough; I51.89 Other ill-defined heart diseases | CPT/HCPCS: 80048; 83036 ==

== ENCOUNTER 2024-10-15 14:44 | Outpatient (CLI) | payer MEDICARE, SELFPAY ==
--- NOTE | 2024-10-15 15:00 | CTR_ITS ---
PROCEDURE INFORMATION: Exam: CT Chest Without Contrast; Diagnostic Exam date and time: 10/15/2024 3:11 PM Age: 74 years old Clinical indication: Abnormal findings; Abnormal radiologic exam of lung or chest; Additional info: Copd, lungrads 4 TECHNIQUE: Imaging protocol: Diagnostic computed tomography of the chest without contrast. Radiation optimization: All CT scans at this facility use at least one of these dose optimization techniques: automated exposure control; mA and/or kV adjustment per patient size (includes targeted exams where dose is matched to clinical indication); or iterative reconstruction. COMPARISON: CT chest w con* [id number] 09/06/2023 5:03 PM RADIATION DOSE METRICS: Total DLP (mGy-cm): 758.58 FINDINGS: Lungs: Minimal reticulonodular infiltrate in the periphery of the left upper lobe likely representing infectious versus inflammatory pneumonitis. Several old calcified granulomas in each lung. Mild interstitial prominence in the periphery of each lung suggesting a component of chronic interstitial lung disease. Pleural spaces: Unremarkable. No pneumothorax. No pleural effusion. Heart: Mild cardiomegaly. No pericardial effusion. There is calcified coronary artery disease. Lymph nodes: The mediastinal lymph nodes have decreased in size. There are old calcified left hilar lymph nodes suggesting old granulomatous disease. Vasculature: Unremarkable. No aortic aneurysm. Diaphragm: Small hiatus hernia. Liver: Stable appearing 2.7 cm hepatic cyst. Bones/joints: No acute osseous lesions. There are multilevel chronic degenerative changes throughout the visualized spine Soft tissues: Unremarkable. CT/CT chest con [id number] IMPRESSION: 1. There is reticulonodular infiltrate in the periphery of the left upper lobe likely representing infectious versus inflammatory pneumonitis on a background of mild chronic interstitial lung disease. 2. Calcified coronary artery disease.
== END 2024-10-15 14:45 | disposition home or self-care (01) ==
PROVIDERS: PCP Family Medicine; Visit Provider Family Medicine
DX: R05.3 Chronic cough (principal); J44.9 Chronic obstructive pulmonary disease, unspecified; R91.8 Other nonspecific abnormal finding of lung field; I25.10 Atherosclerotic heart disease of native coronary artery without angina pectoris; J84.10 Pulmonary fibrosis, unspecified; I51.7 Cardiomegaly; R59.0 Localized enlarged lymph nodes; K44.9 Diaphragmatic hernia without obstruction or gangrene; K76.89 Other specified diseases of liver; M47.9 Spondylosis, unspecified
CPT/HCPCS: 71250

== ENCOUNTER → 2025-01-13 15:32 | Outpatient (BNVA) | payer MEDICARE, SELFPAY | PROVIDERS: PCP Family Medicine; Visit Provider Family Medicine | DX: E11.9 Type 2 diabetes mellitus without complications (principal) | CPT/HCPCS: 80053; 83036 ==

== ENCOUNTER → 2025-01-22 15:41 | Outpatient (BNVA) | payer MEDICARE, SELFPAY | PROVIDERS: PCP Family Medicine; Visit Provider Internal Medicine Cardiovascular Disease | DX: I25.10 Atherosclerotic heart disease of native coronary artery without angina pectoris (principal); I10 Essential (primary) hypertension; E78.5 Hyperlipidemia, unspecified; E11.9 Type 2 diabetes mellitus without complications; Z79.84 Long term (current) use of oral hypoglycemic drugs; Z95.5 Presence of coronary angioplasty implant and graft; Z79.02 Long term (current) use of antithrombotics/antiplatelets; Z79.82 Long term (current) use of aspirin; Z87.891 Personal history of nicotine dependence; R07.9 Chest pain, unspecified | CPT/HCPCS: 93005; 99214 ==